=== PATIENT | female | born 1950 | race Caucasian/White ===

== ENCOUNTER 2017-05-27 09:06 | Inpatient (IN) ==
--- NOTE | 2017-05-26 21:59 | Discharge Summary ---
<ChaimariannaSalena englishKatina L - Last Filed: 05/27/17 11:42> Date of Encounter: 05/27/17 - Discharge Diagnosis (1) Arthritis of knee, right Priority: Primary Status: Chronic (2) Status post total knee replacement, right Priority: Primary Status: Chronic (3) Oxygen dependent Priority: Secondary Status: Acute Comments: Patient on 3 LPM - NC @ HS (4) Chronic anticoagulation Priority: Secondary Status: Acute Comments: Patient takes Xarelto for Chronic Atrial Fibrillation. Will resume this post-op for anticoagulation. (5) Diabetes type 2 with atherosclerosis of arteries of extremities Priority: Secondary Status: Chronic (6) Hypertension Priority: Secondary Status: Chronic Qualifiers: Hypertension type: unspecified Qualified Code(s): I10 - Essential (primary ) hypertension (7) A-fib Status: Chronic Qualifiers: Atrial fibrillation type: unspecified Qualified Code(s): I48.91 - Unspecified atrial fibrillation (8) COPD (chronic obstructive pulmonary disease) Status: Chronic Qualifiers: COPD type: unspecified COPD Qualified Code(s): J44.9 - Chronic obstructive pulmonary disease, unspecified (9) Morbid obesity with BMI of 40.0-44.9, adult Status: Chronic - Discharge Medications Home Medications: OxyCODONE Immed Rel [Roxicodone 5 MG] 5 mg PO Q6HR PRN #28 tablet 05/26/17 [Rx] Albuterol Sulfate [Proair Hfa] 2 puff IH Q8H PRN 05/27/17 [History] Atorvastatin [Lipitor] 40 mg PO HS 05/27/17 [History] Cholecalciferol (Vitamin D3) [Vitamin D3] 1,000 unit PO DAILY 05/27/17 [History] Escitalopram [Lexapro] 10 mg PO DAILY 05/27/17 [History] Flecainide 100 mg PO BID 05/27/17 [History] Furosemide [Lasix] 20 mg PO DAILY 05/27/17 [History] Isosorbide MONOnitrate (24 HR) [Imdur] 30 mg PO DAILY 05/27/17 [History] Lisinopril [Zestril] 10 mg PO DAILY 05/27/17 [History] Metoprolol [Lopressor] 100 mg PO BID 05/27/17 [History] Montelukast [Singulair] 10 mg PO DAILY 05/27/17 [History] Mv-Mn/FA/Vit K/Lycop/Lut/Coq10 [Daily Multivitamin Capsule] 1 tab PO DAILY 05/27 [History] RisperiDONE [Risperdal] 0.5 mg PO DAILY 05/27/17 [History] Rivaroxaban [Xarelto] 20 mg PO DAILY 05/27/17 [History] diazePAM [Valium] 2 mg PO HS PRN 05/27/17 [History] metFORMIN [Glucophage] 250 mg PO BID 05/27/17 [History] Allergies/Adverse Reactions: 3 Allergy/AdvReac Type Severity Reaction Status Date / Time Hydromorphone [From Dilaudid] Allergy Palpitation Verified 05/27/17 09:28 s Penicillins [PCN] Allergy See Verified 05/27/17 09:28 Comments Sulfa (Sulfonamide Allergy Hives Verified 05/27/17 09:28 Antibiotics) Primary care physician: Giles Manrique MD - Patient Status Disposition: Transfer Inpatient Rehab Fac Condition: Good - Discharge Instructions Follow Up With: Giles Manrique MD [Primary Care Provider] - - Hospital Course Hospital course: Ms. Adamson is a 66 year old female - Time Spent with Patient Total time spent providing and/or coordinating discharge services: <Juan M Roy - Last Filed: 05/29/17 08:43> Date of Encounter: 05/29/17 Time of Encounter: 08:42 - Discharge Diagnosis (1) Arthritis of knee, right Priority: Primary Status: Chronic (2) Status post total knee replacement, right Priority: Primary Status: Chronic (3) Hypertension Priority: Secondary Status: Chronic Qualifiers: Hypertension type: unspecified Qualified Code(s): I10 - Essential (primary ) hypertension (4) A-fib Priority: Secondary Status: Chronic Qualifiers: Atrial fibrillation type: unspecified Qualified Code(s): I48.91 - Unspecified atrial fibrillation (5) COPD (chronic obstructive pulmonary disease) Priority: Secondary Status: Chronic Qualifiers: COPD type: unspecified COPD Qualified Code(s): J44.9 - Chronic obstructive pulmonary disease, unspecified (6) Hepatitis B Priority: Secondary Status: Chronic Qualifiers: Viral hepatitis chronicity: unspecified Hepatic coma status: without hepatic coma Hepatitis delta agent presence: without delta-agent Qualified Code(s): B19.10 - Unspecified viral hepatitis B without hepatic coma (7) Diabetes type 2, controlled Status: Acute Qualifiers: Diabetes mellitus complication status: with unspecified complications Diabetes mellitus intermediate insulin use: unspecified termite inspector insulin use status Qualified Code(s): E11.8 - Type 2 diabetes mellitus with unspecified complications (8) Pseudoseizures Priority: Secondary Status: Chronic (9) Morbid obesity with BMI of 40.0-44.9, adult Priority: Secondary Status: Chronic (10) Acute blood loss anemia Priority: Primary Status: Acute Primary care physician: Giles Manrique MD - Patient Status Functional capacity at discharge: uses cane/walker Overall status at discharge: patient is progressing back to baseline - Hospital Course Hospital course: Ms. Adamson is a 66 year old female Status post right total knee replacement patient with acute blood loss anemia received 2 units of blood. She received 1 more unit stay discharge stable condition.The patient had an uneventful postoperative course. They received antibiotics and physical therapy and were discharged in stable condition. There will follow-up in the office in 2 weeks. - Time Spent with Patient Total time spent providing and/or coordinating discharge services:
[2017-05-27] MEDS ORDERED: *HR* FentaNYL (PF) 100 MCG/2 ML VIAL ONE (09:12)
[2017-05-27] MEDS ORDERED: Ondansetron 4 MG/2 ML VIAL ONE (09:12)
[2017-05-27] MEDS ORDERED: *HR* Succinylcholine 200 MG/10 ML VIAL IVP ONE (09:12)
[2017-05-27] MEDS ORDERED: *HR* Midazolam HCl 2 MG/2 ML VIAL ONE (09:13)
[2017-05-27] MEDS ORDERED: *HR* Propofol 200 MG/20 ML VIAL IVP ONE (09:13)
--- NOTE | 2017-05-27 09:27 | Anesthesia Evaluation PreOp ---
Date of Encounter: 05/27/17 Time of Encounter: 09:24 - Past History Planned Operation: Right TKA Cardiac History: HTN, Arrhythmia (Afib) Pulmonary History: COPD (3L O2 @ night) VEHICLE SALES PROFESSIONAL History: Syncope (Pseudoseizures - none for 3 years), Other (Panic attacks, Depression) Other Medical History: Hepatic (Hep B.), Diabetes Type II, GERD, Other (Obesity) Anesthesia History: No Prior Anesthetic Complications, Past Anesthesia (Appy, GB , Tubal, L. TKR, Gastric bypass,GABRIELLA) : No Alcohol Use: rarely Drug use: none Medications and Allergies Aspirin Enteric Coated [Aspirin EC] 325 mg PO DAILY #21 tablet. 05/26/17 [Rx] OxyCODONE Immed Rel [Roxicodone 5 MG] 5 mg PO Q6HR PRN #28 tablet 05/26/17 [Rx] Albuterol Sulfate [Proair Hfa] 2 puff IH Q8H PRN 05/27/17 [History] Cholecalciferol (Vitamin D3) [Vitamin D] 1,000 unit PO DAILY 05/27/17 [History] Escitalopram [Lexapro] 10 mg PO DAILY 05/27/17 [History] Flecainide [Flecainide] 100 mg PO BID 05/27/17 [History] Furosemide [Lasix] 20 mg PO DAILY 05/27/17 [History] Isosorbide MONOnitrate (24 HR) [Imdur] 30 mg PO DAILY 05/27/17 [History] Lisinopril [Zestril] 10 mg PO DAILY 05/27/17 [History] Metoprolol [Lopressor] 100 mg PO BID 05/27/17 [History] Montelukast [Singulair] 10 mg PO DAILY 05/27/17 [History] Mv-Mn/FA/Vit K/Lycop/Lut/Coq10 [Daily Multivitamin Capsule] 1 tab PO DAILY 05/27 [History] RisperiDONE [Risperdal] 0.5 mg PO DAILY 05/27/17 [History] Rivaroxaban [Xarelto] 20 mg PO DAILY 05/27/17 [History] diazePAM [Valium] 2 mg PO HS PRN 05/27/17 [History] metFORMIN [Glucophage] 250 mg PO BID 05/27/17 [History] 3 Allergy/AdvReac Type Severity Reaction Status Date / Time Hydromorphone [From Dilaudid] Allergy Palpitation Verified 05/27/17 09:28 s Penicillins [PCN] Allergy See Verified 05/27/17 09:28 Comments Sulfa (Sulfonamide Allergy Hives Verified 05/27/17 09:28 Antibiotics) - Meds/Allergy Pre-op Review Medications Reviewed: Yes Allergies Reviewed: Yes Beta Blockers on Current Med List: No Anesthesia Results - Labs Laboratory Tests 03/13/17 05/21/17 05/21/17 11:40 11:13 11:13 WBC 7.5 Hgb 10.9 L Hct 34.8 L Plt Count 267 INR 2.4 Sodium Potassium Chloride Carbon Dioxide BUN Creatinine Hemoglobin A1c 7.1 H 05/21/17 11:13 WBC Hgb Hct Plt Count INR Sodium 141 Potassium 4.1 Chloride 106 Carbon Dioxide 25 BUN 13 Creatinine 0.77 Hemoglobin A1c - Imaging EKG: report reviewed (SINUS BRADYCARDIA INFERIOR MYOCARDIAL INFARCTION) Anesthesia Exam Height: 5'10'' Weight: 290# NPO (# of Hours): > 8 hrs Pain Scale: 0 Pain Scale Used: Numeric (1 - 10) - HEENT Pupil (Motor): Pupils equal, EOMI Mallampati: II Teeth: Normal Oral Opening: Greater than 3 - VEH[employer] SALES [employer]ESSION[employer] LOC: Oriented [employer] Motor: Normal RUE, Normal LUE, Normal RLE, Normal LLE, Normal Face [employer] Sensory: Normal: RUE, LUE, RLE, LLE, Face - Cardiac Rhythm: Regular Murmur: None JVD: No Carotid Bruit: No - Pulmonary Breath Sounds: bilateral Clear Respiratory Effort: Symmetrical - Additional Findings Dilaudid cause heart to race and she becomes diaphoretic, Morphine - no problems Anesthesia Assess/Plan ASA Score: 4 Modified [place] Scale for Level of Consciousness: Cooperative, oriented, and tranquil Anesthetic Plan: General, Regional (Right Fem. Nerve Block) Monitoring Plan: Standard Monitors Recovery Plan: PACU
[2017-05-27] MEDS ORDERED: *HR* Labetalol 20 MG/4 ML SYRINGE IVP PRN ×2 (09:37→09:55)
[2017-05-27] MEDS ORDERED: *HR* Meperidine 25 MG/ML SYRINGE IVP PRN (09:37)
[2017-05-27] MEDS ORDERED: *HR* Morphine 2 MG/ML SYRINGE IVP PRN ×2 (09:37→14:14)
[2017-05-27] MEDS ORDERED: *HR* Promethazine 25 MG/ML VIAL IVP PRN (09:37)
[2017-05-27] MEDS ORDERED: Plasma-Lyte A (PH 7.4) 1,000 ML IVC SCH (09:45)
[2017-05-27] MEDS ORDERED: Albuterol 2.5 MG/3 ML NEBULIZER IH ONE (09:50)
[2017-05-27] MEDS ORDERED: CeFAZolin Syr 3,000MG/30 ML 3,000 MG/30 ML SYRINGE IVPB ONE (09:50)
--- NOTE | 2017-05-27 10:57 | History & Physical Report ---
Date of Encounter: 05/27/17 Time of Encounter: 10:57 24 Hour HP Update - Instructions Instructions: If the History and Physical is less than 30 days old and was completed prior to A.M. admission and or procedure and has NOT been updated on calendar day of procedure please complete this update prior to performing procedure. - Update Patient reports changes in Medical Condition: No Changes in examination, assessment, or condition: No Changes in Medication: No Preop tests/diagnostics Reviewed: Yes Surgery Remains Indicated: Yes Consent for Planned Operative Procedure(s) Verified: Yes - Pre-Operative Checklist Preoperative Checklist Indicated: No Prophylactic Antibiotic Ordered: Yes Is VTE Prophylaxis Indicated?: Yes
[2017-05-27] MEDS ORDERED: ROPIVACAINE HCL/PF 0.5% 30 ML VIAL ONE (11:38)
[2017-05-27] MEDS ORDERED: Bupivacaine/Clonidine Syringe 1 EACH SYRINGE ONE (11:39)
[2017-05-27] MEDS ORDERED: Ethanol\\Acetic Acid\\Na Ace\\Ben 1,000 ML IRRIG.SOLN IR ONE (11:45)
--- NOTE | 2017-05-27 12:00 | Anesthesia Procedures ---
Date of Encounter: 05/27/17 Time of Encounter: 11:58 Procedures: Anesthesia - Nerve Block Procedure Date: 05/27/17 Time: 11:58 Allergies/Adv Reactions: dilaudid, pcn, sufa Pre-op Diagnosis: OA Rt Knee Surgical Procedure: Rt tot knee Checklist: Correct Patient Identifier Correct side: Right Blood Thinner: No Monitor Applied: EKG, BP, Pulse Oximetry Supplemental Oxygen via Nasal Cannula (L/min): 3 Sedation: Versed (mg): 2 Sedation: Fentanyl (mcg): 100 Indication: Post Op Analgesia Pre-op Neuro Deficits: No Block Type: Femoral, Other (IPACK) Catheter placed: No Sterile Technique: Yes Ultrasound used: Yes Anatomy identified: Yes Visual spread of Local: Yes Neuro Stimulation: Yes Nerve Stimulator Range: 0.2 - 0.4 mA Blood on Needle Aspiration: No Smooth Injection of Local: Yes Pain with Injection of Local: No Prep: Chlorhexadine Needle: 22 x 50 mm Stimuplex, 21 x 100 mm Stimuplex Local: 0.25% Bupivicaine w/Clonidine 20 mcg/cc, Ropivacaine Volume (cc): 20+30 Number of Attempts: 1 Complications: None/effective block Vitals: Vital Signs/O2 Sat, Most Current Temp Pulse Resp BP Pulse Ox 98.2 F 67 18 174/91 100 05/27/17 09:29 05/27/17 11:57 05/27/17 11:57 05/27/17 11:57 05/27/17 11:57 Comments: aseptic, tolerated well, effective
[2017-05-27] MEDS ORDERED: EPHEDrine 50 MG/ML VIAL ONE (12:18)
[2017-05-27] MEDS ORDERED: Acetaminophen IV 1,000 MG/100 ML INFUS..BTL ONE (12:42)
[2017-05-27] MEDS ORDERED: Ketorolac 30 MG/ML VIAL ONE (12:53)
--- NOTE | 2017-05-27 13:11 | Orthopedic Operative Note ---
Date of procedure: 05/27/17 Pre-op diagnosis: Right knee arthritis Post-op diagnosis: same Procedure: Procedure: Right robotic-assisted Total knee replacement Estimated blood loss: 200 cc Hardware: Metal and polyethylene replacement. [place] Femur: 5 Tibia: 4 PS insert: 13 Patella: 36 Exam Under anesthesia:lost full extension and 11 degrees as calculated by the robot full flexion and no instability Procedural Note Grade 4 arthritic changes all 3 compartments Operative procedure: The patient was brought to the operating room and placed on the operating room table. After general anesthesia was administered the operative knee was examined. Findings were noted in the exam under anesthesia. The operative extremity was prepped and draped in sterile surgical fashion. The patient received IV antibiotics prior to skin incision. A standard midline incision was made centered over the patella. The incision was made through the skin and subcutaneous tissue. A medial parapatellar tendon approach was performed. Care was taken to preserve tissue along the medial aspect of the patella. And to protect the patella tendon. The deep MCL was released off the medial tibia. The infra patella fat pad was excised. The patella was everted and cut was made at the level of the insertion of the quadriceps and patella tendon. The patella was sized to a 36 the guide was seated and the lug holes are drilled. Knee was brought into flexion. Patient noted to have grade 4 arthritic changes all 3 compartments. Steinmann pins were placed in the tibia and the femur for the tibial and femoral arrays respectively. Checkpoints were also placed in the tibia and the femur for calculation purposes. The knee including the femur and the tibial registered. Osteophytes, ACL and PCL were excised at this point. Extension was to loss of 11 degrees and then varus and valgus stresses were assessed, 90 degrees of flexion varus and valgus stresses were assessed and components were adjusted on the computer for the robotic cut positions. Femoral cuts were made first with robotic assistance, these included the anterior cut posterior cuts chamfer cuts. Tibial cut was then performed with robotic assistance as well. Bone fragments were removed, as well as the medial and lateral meniscus. The [id number] guide was seated box cut was made lug holes are drilled. The size 4 tibial tray was seated and prepared with the fin cutter. Trial reduction with the 13 PS Adrienne revealed extension of 0 degree and full flexion. No varus valgus instability. Trial reduction revealed excellent patella tracking. All trial components were removed all bony surfaces were irrigated. the tibia cemented followed by the femur, the #13 TS Adrienne was seated andthe patella was cemented and held in place with patellar clamp. Patient had similar findings for motion and stability. The knee was closed by the PA. The knee was then irrigated out with 2 L of pulse irrigation. The extensor mechanism was closed with #2 FiberWire suture and #2 PDS suture. The subcutaneous tissue was then irrigated and closed deep with #1 PDS suture superficially with 0 PDS suture and skin was closed with zip tie The patient was then placed in a sterile dressing and a postoperative brace extubated and transferred to recovery room in stable condition.t Anesthesia: BEVELRY Surgeon: Juan M Roy Education Instructor: Salome Mccoy Condition: stable Disposition: PACU
--- NOTE | 2017-05-27 14:06 | Anesthesia Evaluation Post Op ---
Date of Encounter: 05/27/17 Time of Encounter: 14:03 - Vital Signs Vital Signs: vss - Lungs Lungs: Clear Ascult./Percussion - Airway Airway: Non-obstructed - Cardiovascular Baseline Rhythm - Mental Status Mental Status: Alert & Oriented, Answers Appropriately - Pain Pain Scale used: Don (Faces) (denies) - Nausea Vomiting Nausea Vomiting: Not Present - Hydration Hydration: Ice chips - Discharge PostOp Status: Transfer Patient to floor
[2017-05-27] MEDS ORDERED: Dextrose Gel 15 GM PO PRN ×2 (14:14)
[2017-05-27] MEDS ORDERED: *HR* Dextrose 50 % in Water (Syg) 50 ML SYRINGE IVP PRN (14:14)
[2017-05-27] MEDS ORDERED: D5% in Water 1,000 ML IVC PRN (14:14)
[2017-05-27] MEDS ORDERED: Sennosides 8.6 MG TABLET PO PRN (14:14)
[2017-05-27] MEDS ORDERED: Naloxone 0.4 MG/ML INJ IVP PRN (14:14)
[2017-05-27] MEDS ORDERED: Ondansetron 4 MG/2 ML VIAL IVP PRN (14:14)
[2017-05-27] MEDS ORDERED: diazePAM 2 MG TABLET PO PRN (14:14)
[2017-05-27] MEDS ORDERED: Ringers Solution, Lactated 1,000 ML IVC SCH (14:14)
[2017-05-27] MEDS ORDERED: MOM Conc 10 ML UD.LIQ PO PRN (14:14)
[2017-05-27] MEDS ORDERED: *HR* OxyCODONE Immed Rel 5 MG TABLET PO PRN (14:14)
[2017-05-27] MEDS ORDERED: Temazepam 15 MG CAPSULE PO PRN (14:14)
[2017-05-27 14:18] LABS: Hematocrit 31.9 % (35.3-44.9); Hemoglobin 9.9 g/dL (11.5-15.4)
[2017-05-27] MEDS: Insulin LISPRO 300 UNITS/3 ML VIAL SQ SCH ×3 (15:03→21:26)
--- NOTE | 2017-05-27 15:44 | Physician Discharge Referral ---
ExtendedCare Referral Info Transfer To: ECF Provider in Charge: Provider in Charge after Transfer: PCP Institutional Level of Care: Skilled - Diagnosis (1) Arthritis of knee, right Priority: Primary Status: Chronic (2) Status post total knee replacement, right Priority: Primary Status: Chronic (3) Oxygen dependent Priority: Secondary Status: Acute (4) Chronic anticoagulation Priority: Secondary Status: Acute (5) Diabetes type 2 with atherosclerosis of arteries of extremities Priority: Secondary Status: Chronic (6) Hypertension Priority: Secondary Status: Chronic (7) A-fib Priority: Secondary Status: Chronic (8) COPD (chronic obstructive pulmonary disease) Priority: Secondary Status: Chronic (9) Morbid obesity with BMI of 40.0-44.9, adult Priority: Secondary Status: Chronic Expected Duration of Placement: < 30 days Prognosis: Good Aware of Diagnosis: Patient Aware of Prognosis: Patient - Transfer Medications Home Medications: OxyCODONE Immed Rel [Roxicodone 5 MG] 5 mg PO Q6HR PRN #28 tablet 05/26/17 [Rx] Albuterol Sulfate [Proair Hfa] 2 puff IH Q8H PRN 05/27/17 [History] Atorvastatin [Lipitor] 40 mg PO HS 05/27/17 [History] Cholecalciferol (Vitamin D3) [Vitamin D3] 1,000 unit PO DAILY 05/27/17 [History] Escitalopram [Lexapro] 10 mg PO DAILY 05/27/17 [History] Flecainide 100 mg PO BID 05/27/17 [History] Furosemide [Lasix] 20 mg PO DAILY 05/27/17 [History] Isosorbide MONOnitrate (24 HR) [Imdur] 30 mg PO DAILY 05/27/17 [History] Lisinopril [Zestril] 10 mg PO DAILY 05/27/17 [History] Metoprolol [Lopressor] 100 mg PO BID 05/27/17 [History] Montelukast [Singulair] 10 mg PO DAILY 05/27/17 [History] Mv-Mn/FA/Vit K/Lycop/Lut/Coq10 [Daily Multivitamin Capsule] 1 tab PO DAILY 05/27 [History] RisperiDONE [Risperdal] 0.5 mg PO DAILY 05/27/17 [History] Rivaroxaban [Xarelto] 20 mg PO DAILY 05/27/17 [History] diazePAM [Valium] 2 mg PO HS PRN 05/27/17 [History] metFORMIN [Glucophage] 250 mg PO BID 05/27/17 [History] Allergies/Adverse Reactions: 3 Allergy/AdvReac Type Severity Reaction Status Date / Time Hydromorphone [From Dilaudid] Allergy Palpitation Verified 05/27/17 09:28 s Penicillins [PCN] Allergy See Verified 05/27/17 09:28 Comments Sulfa (Sulfonamide Allergy Hives Verified 05/27/17 09:28 Antibiotics) - Respiratory Orders Oxygen / L per min (3 LPM - NC at HS) Smoking Cessation: Smoking cessation has been advised. For more information, call the [employer] Tobacco Quit Line at 7-156-KPOX-NOW. - Ancillary Orders May use pressure relief devices daily prn, May go on SELVIN w/family/respon alliance party w /meds at nurse discretion PRN, May consult with Dentist, Warehouse Loader, Parking Meter Collector PRN - Mobility Orders Chair, Ambulate - Rehabiliation Orders Rehab Orders: ROM Exercises, Evaluation for Physical Therapy, Evaluation for Occupational Therapy - Treatments Skin tear care topically daily PRN per policy List/Other: Right TKR - Robotic Opsite dressing, leave intact until first post-operative visit. If dressing becomes >50% saturated, contact office, remove dressing and place appropriate dressing in its place. Do not allow for dressing to get wet. [place]/Zipline dressing in place, plan to remove at POD#14-16. PT: Total Joint Precautions x 6 weeks Apply ICE/cold therapy wrap 3-6x/day for 20 minutes at a time. Encourage ambulation throughout the day and incentive spirometer 10x/hour. Elevate affected extremity above heart as tolerated. Brace: Knee immobilizer at night until first post-operative appointment. Anti-coagulation: Continue Xarelto, Dx: Atrial Fibrillation - Diet Orders Regular CERTIFICATION: I certify that the transfer of the above named patient to an Extended Care Facility is necessary for the continuing treatment of the diagnosis listed. The above information is true and accurate reflection of patient's current condition. Confidential - Redisclosure prohibited without a patient's written consent.
--- NOTE | 2017-05-27 15:45 | Physician Discharge Referral ---
Home Health/Hosp Referral Info Transfer to: Home Health Provider in Charge Post Discharge: PCP - Diagnosis (1) Arthritis of knee, right Priority: Primary Status: Chronic (2) Status post total knee replacement, right Priority: Primary Status: Chronic (3) Oxygen dependent Status: Acute (4) Chronic anticoagulation Status: Acute (5) Diabetes type 2 with atherosclerosis of arteries of extremities Status: Chronic (6) Hypertension Status: Chronic (7) A-fib Status: Chronic (8) COPD (chronic obstructive pulmonary disease) Status: Chronic (9) Morbid obesity with BMI of 40.0-44.9, adult Status: Chronic - Respiratory Orders Oxygen / L per min (3 LPM or NC at HS) Smoking Cessation: Smoking cessation has been advised. For more information, call the [employer] Tobacco Quit Line at 0-979-NBVP-NOW. - Diet/Nutrition Diet/Nutrition Orders: Regular - Activity Activity Orders: Up ad estuardo, Ambulate, Walker - Services Needed Following services are medically necessary services: Nursing, Home Health Aide, Physical Therapy, Occupational Therapy Home Care Orders: Right TKR - Robotic Opsite dressing, leave intact until first post-operative visit. If dressing becomes >50% saturated, contact office, remove dressing and place appropriate dressing in its place. Do not allow for dressing to get wet. [place]/Zipline dressing in place, plan to remove at POD#14-16. PT: Total Joint Precautions x 6 weeks Apply ICE/cold therapy wrap 3-6x/day for 20 minutes at a time. Encourage ambulation throughout the day and incentive spirometer 10x/hour. Elevate affected extremity above heart as tolerated. Brace: Knee immobilizer at night until first post-operative appointment. Anti-coagulation: Continue Xarelto, Dx: Atrial Fibrillation - Transfer Medications Home Medications: OxyCODONE Immed Rel [Roxicodone 5 MG] 5 mg PO Q6HR PRN #28 tablet 05/26/17 [Rx] Albuterol Sulfate [Proair Hfa] 2 puff IH Q8H PRN 05/27/17 [History] Atorvastatin [Lipitor] 40 mg PO HS 05/27/17 [History] Cholecalciferol (Vitamin D3) [Vitamin D3] 1,000 unit PO DAILY 05/27/17 [History] Escitalopram [Lexapro] 10 mg PO DAILY 05/27/17 [History] Flecainide 100 mg PO BID 05/27/17 [History] Furosemide [Lasix] 20 mg PO DAILY 05/27/17 [History] Isosorbide MONOnitrate (24 HR) [Imdur] 30 mg PO DAILY 05/27/17 [History] Lisinopril [Zestril] 10 mg PO DAILY 05/27/17 [History] Metoprolol [Lopressor] 100 mg PO BID 05/27/17 [History] Montelukast [Singulair] 10 mg PO DAILY 05/27/17 [History] Mv-Mn/FA/Vit K/Lycop/Lut/Coq10 [Daily Multivitamin Capsule] 1 tab PO DAILY 05/27 [History] RisperiDONE [Risperdal] 0.5 mg PO DAILY 05/27/17 [History] Rivaroxaban [Xarelto] 20 mg PO DAILY 05/27/17 [History] diazePAM [Valium] 2 mg PO HS PRN 05/27/17 [History] metFORMIN [Glucophage] 250 mg PO BID 05/27/17 [History] Allergies/Adverse Reactions: 3 Allergy/AdvReac Type Severity Reaction Status Date / Time Hydromorphone [From Dilaudid] Allergy Palpitation Verified 05/27/17 09:28 s Penicillins [PCN] Allergy See Verified 05/27/17 09:28 Comments Sulfa (Sulfonamide Allergy Hives Verified 05/27/17 09:28 Antibiotics) Certification: Further, I certify that my clinical findings support that this patient is homebound (i.e. absences from home require considerable and taxing effort and are for medical reasons or [employer] services or infrequently or short duration when for other reasons) because: Homebound Reason: Post-surgery restriction and or conditions limit ability to leave home Attestation: My signature below is to certify that this patient is under my care and that I, or nurse practitioner, or a physician's assistant public defender working with me, has a face-to -face encounter with this patient.
[2017-05-27] MEDS: Clindamycin 900 MG/50 ML 900 MG/50 ML IV.SOLN IVPB SCH ×2 (16:17→23:21)
[2017-05-27] MEDS ORDERED: *HR* Enoxaparin 30 MG/0.3 ML SYRINGE SQ SCH (18:00)
[2017-05-27] MEDS: *HR* Metformin 500 MG TABLET PO SCH (21:25)
[2017-05-27] MEDS: Metoprolol 100 MG TABLET PO SCH (21:32)
[2017-05-28 04:21] LABS: Hematocrit 28.1 % (35.3-44.9); Hemoglobin 8.9 g/dL (11.5-15.4)
[2017-05-28 04:30] LABS: BUN/Creatinine Ratio 12 (6-26); Blood Urea Nitrogen 9 mg/dL (7-20); Calcium 8.7 mg/dL (8.6-10.8); Carbon Dioxide 23 mEq/L (19-29); Chloride 107 mEq/L (98-109); Glucose 221 mg/dL (70-99); Osmolality,Calculated 289 (280-300); Potassium 4.2 mEq/L (3.5-4.5); Sodium 137 mEq/L (136-145); eGFR For African Americans > 60 (> 60); eGFR For Non-African Americans > 60 (> 60)
[2017-05-28] MEDS ORDERED: Furosemide 20 MG/2 ML VIAL IVP ONE (06:38)
--- NOTE | 2017-05-28 06:51 | Orthopedics Progress Note ---
Date of Encounter: 05/28/17 Time of Encounter: 06:51 - Assessment and Plan (1) Arthritis of knee, right Current Visit: No Status: Chronic (2) Status post total knee replacement, right Current Visit: No Status: Chronic (3) Hypertension Current Visit: Yes Status: Chronic Qualifiers: Hypertension type: unspecified Qualified Code(s): I10 - Essential (primary ) hypertension (4) A-fib Current Visit: Yes Status: Chronic Qualifiers: Atrial fibrillation type: unspecified Qualified Code(s): I48.91 - Unspecified atrial fibrillation (5) COPD (chronic obstructive pulmonary disease) Current Visit: Yes Status: Chronic Qualifiers: COPD type: unspecified COPD Qualified Code(s): J44.9 - Chronic obstructive pulmonary disease, unspecified (6) Hepatitis B Current Visit: Yes Status: Chronic Qualifiers: Viral hepatitis chronicity: unspecified Hepatic coma status: without hepatic coma Hepatitis delta agent presence: without delta-agent Qualified Code(s): B19.10 - Unspecified viral hepatitis B without hepatic coma (7) Diabetes type 2, controlled Current Visit: Yes Status: Acute Qualifiers: Diabetes mellitus complication status: with unspecified complications Diabetes mellitus vermin exterminator insulin use: unspecified vermin exterminator insulin use status Qualified Code(s): E11.8 - Type 2 diabetes mellitus with unspecified complications (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 Afebrile vital signs stable. Operative extremity: Neurovascularly intact Dressing clean dry and intact Calves nontender Assessment and plan: Continue with postoperative care Hemoglobin 8.9 transfuse 2 units Objective Vital signs: Vital Signs Temp Pulse Resp BP Pulse Ox 05/28/17 03:39 97.6 F 57 16 157/78 98 05/28/17 00:50 97.7 F 66 16 132/74 94 05/27/17 21:23 97.6 F 67 18 122/68 97 05/27/17 16:25 97.6 F 57 16 144/72 97 05/27/17 15:30 98.2 F 63 16 144/73 99 05/27/17 14:59 97.6 F 67 15 147/73 96 05/27/17 14:30 98.4 F 63 14 168/82 98 05/27/17 14:12 97.8 F 60 16 143/85 98 05/27/17 14:02 65 17 140/79 99 05/27/17 13:52 64 16 143/74 99 05/27/17 13:42 97.1 F L 68 16 131/94 97 05/27/17 11:57 67 18 174/91 100 05/27/17 11:39 54 16 159/72 99 05/27/17 11:18 56 16 159/68 99 05/27/17 10:06 18 162/78 96 05/27/17 09:29 98.2 F 61 18 162/78 96 Intake and Output 05/27/17 05/27/17 05/28/17 15:59 23:59 07:59 Intake Total 0 / 0 340 / 340 50 / 50 Output Total 200 / 200 1000 / 1000 0 / 0 Balance -200 / -200 -660 / -660 50 / 50 Intake: IV Fluids 50 / 50 50 / 50 Cleocin Premix 900 MG/50 ML 900 50 / 50 50 / 50 mg In 50 ml @ 50 mls/hr IVPB Q8HR SHERI Rx#:[id number] Oral 0 / 0 290 / 290 Output: Urine 1000 / 1000 0 / 0 Estimated Blood Loss 200 / 200 Other: Meal Dinner Percent of Meal Consumed 100% # Voids 1 Weight 131.542 kg 130.1 kg Blood Glucose* 130 259 Patient Weight 05/28/17 23:59 Weight 130.1 kg - Labs CBC & BMP: 05/28/17 03:45 05/28/17 03:45 Labs: Abnormal lab results Hgb 8.9 g/dL (11.5-15.4) L 05/28/17 03:45 Hct 28.1 % (35.3-44.9) L 05/28/17 03:45 Glucose 221 mg/dL (70-99) H 05/28/17 03:45 POC Glucose 239 (58-89) H 05/27/17 17:28 - VTE Documentation of Mechanical Device: Venous foot pump, device Consult Discharge Plan - Plan Referrals: Giles Manrique MD [Primary Care Provider] -
[2017-05-28] MEDS ORDERED: 0.9 % Sodium Chloride 500 ML ONE (07:48)
[2017-05-28] MEDS: Furosemide 20 MG TABLET PO SCH (08:21)
[2017-05-28] MEDS: Multivit/Ca/Min/Fe/FA 1 TAB TABLET PO SCH (08:21)
[2017-05-28] MEDS: Isosorbide MONOnitrate (24 HR) 30 MG TAB.ER.24H PO SCH (08:21)
[2017-05-28] MEDS: Cholecalciferol (D-3) 1,000 UNIT TABLET PO SCH (08:21)
[2017-05-28] MEDS: Metoprolol 100 MG TABLET PO SCH ×2 (08:21→21:43)
[2017-05-28] MEDS: risperiDONE 0.25 MG TABLET PO SCH (08:22)
[2017-05-28] MEDS: *HR* Metformin 500 MG TABLET PO SCH ×2 (08:22→21:43)
[2017-05-28] MEDS: Insulin LISPRO 300 UNITS/3 ML VIAL SQ SCH ×4 (08:22→21:44)
[2017-05-28] MEDS: *HR* Rivaroxaban 10 MG TABLET PO SCH (08:22)
[2017-05-28] MEDS: *HR* OxyCODONE Immed Rel 5 MG TABLET PO PRN ×3 (12:45→21:43)
[2017-05-29 04:21] LABS: Hematocrit 28.3 % (35.3-44.9); Hemoglobin 8.8 g/dL (11.5-15.4)
[2017-05-29 04:33] LABS: BUN/Creatinine Ratio 14 (6-26); Blood Urea Nitrogen 10 mg/dL (7-20); Calcium 8.2 mg/dL (8.6-10.8); Carbon Dioxide 24 mEq/L (19-29); Chloride 103 mEq/L (98-109); Glucose 172 mg/dL (70-99); Osmolality,Calculated 281 (280-300); Potassium 3.7 mEq/L (3.5-4.5); Sodium 134 mEq/L (136-145); eGFR For African Americans > 60 (> 60); eGFR For Non-African Americans > 60 (> 60)
[2017-05-29] MEDS ORDERED: Furosemide 20 MG/2 ML VIAL IVP ONE ×2 (07:01→15:37)
[2017-05-29] MEDS: Cholecalciferol (D-3) 1,000 UNIT TABLET PO SCH (08:23)
[2017-05-29] MEDS: Metoprolol 100 MG TABLET PO SCH (08:24)
[2017-05-29] MEDS: Furosemide 20 MG TABLET PO SCH (08:24)
[2017-05-29] MEDS: *HR* Metformin 500 MG TABLET PO SCH (08:24)
[2017-05-29] MEDS: *HR* OxyCODONE Immed Rel 5 MG TABLET PO PRN ×2 (08:24→13:46)
[2017-05-29] MEDS: *HR* Rivaroxaban 10 MG TABLET PO SCH (08:25)
[2017-05-29] MEDS: Multivit/Ca/Min/Fe/FA 1 TAB TABLET PO SCH (08:25)
[2017-05-29] MEDS: risperiDONE 0.25 MG TABLET PO SCH (08:25)
[2017-05-29] MEDS: Insulin LISPRO 300 UNITS/3 ML VIAL SQ SCH ×3 (08:26→17:42)
[2017-05-29] MEDS ORDERED: 0.9 % Sodium Chloride 250 ML ONE (12:03)
[2017-05-29] MEDS: Isosorbide MONOnitrate (24 HR) 30 MG TAB.ER.24H PO SCH (13:44)
[2017-05-29 15:31] VITALS: BP 167/70
[2017-05-29 15:55] LABS: Hematocrit 31.4 % (35.3-44.9); Hemoglobin 10.3 g/dL (11.5-15.4)
== END 2017-05-29 18:45 | DRG 302 ==
LOC: SAMDAY 09:06 → 3NENU 14:22
PROVIDERS: ADMIT Orthopaedic Surgery; ATTEND Orthopaedic Surgery

== ENCOUNTER 2018-03-03 20:53 | Observation (INO) ==
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
[2018-03-03] MEDS ORDERED: Ondansetron 4 MG/2 ML VIAL IVP ONE (21:10)
[2018-03-03 21:23] LABS: Basophils # 0.1 K/mcL (0.0-0.2); Basophils % 0.6 %; Eosinophils # 0.3 K/mcL (0.0-0.6); Eosinophils % 3.6 %; Hematocrit 36.2 % (35.3-44.9); Hemoglobin 11.8 g/dL (11.5-15.4); Immature Granulocytes % 0.1 % (0-4); Lymphocytes # 2.2 K/mcL (0.6-4.6); Lymphocytes % 25.8 %; Mean Corpuscular HGB Conc 32.6 g/dL (31.6-35.5); Mean Platelet Volume 9.4 fL (9.4-12.4); Monocytes # 0.8 K/mcL (0.0-1.3); Monocytes % 9.8 %; Neutrophils # 5.1 K/mcL (1.6-8.9); Platelet Count 228 K/mcL (140-400); Red Blood Count 3.81 M/mcL (3.82-4.97); Red Cell Distribution Width 14.4 % (11.5-14.5); Segmented Neutrophils % 60.1 %
[2018-03-03 21:30] LABS: INR 1.1; Prothrombin Time 12.7 Seconds (9.4-12.1)
[2018-03-03 21:43] LABS: Troponin I < 0.03 ng/mL (< 0.04)
[2018-03-03 21:52] LABS: BUN/Creatinine Ratio 22 (6-26); Blood Urea Nitrogen 15 mg/dL (8-23); Calcium 9.2 mg/dL (8.6-10.3); Carbon Dioxide 22 mEq/L (23-29); Chloride 109 mEq/L (98-107); Glucose 88 mg/dL (70-105); Osmolality,Calculated 282 (280-300); Potassium 5.9 mEq/L (3.5-5.1); Sodium 136 mEq/L (136-145); eGFR For Non-African Americans > 60 (> 60)
[2018-03-03] MEDS ORDERED: 0.9 % Sodium Chloride 1,000 ML IVC ONE (22:17)
[2018-03-03 22:43] LABS: Bilirubin,Urine Negative (Negative); Blood,Urine Negative (Negative); Clarity,Urine Clear (Clear); Color,Urine Yellow (Yellow); Glucose,Urine (UA) Normal (Normal); Ketones,Urine Negative (Negative); Leukocyte Esterase,Urine Moderate (Negative); Nitrite,Urine Negative (Negative); PH,Urine 6.5 pH Units (5.0-8.0); Protein,Urine Negative (Neg-Trace); Specific Gravity,Urine 1.015 (1.010-1.025); Urobilinogen,Urine Normal (Normal)
[2018-03-03 22:47] LABS: Bacteria,Urine None Seen per hpf (None-Few); Hyaline Casts,Urine None Seen per lpf (None-Few); RBC,Urine 0-3 per hpf (0-3); Squamous Epithelial Cell,Urine None Seen per lpf (None-Few); WBC,Urine 15-30 per hpf (0-3)
[2018-03-04] MEDS ORDERED: Ondansetron ODT 4 MG TAB.RAPDIS SL PRN (00:41)
[2018-03-04] MEDS ORDERED: Acetaminophen 325 MG TABLET PO PRN (00:41)
[2018-03-04] MEDS ORDERED: Naloxone 0.4 MG/ML INJ IVP PRN (00:41)
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
[2018-03-04 02:19] LABS: Basophils % 0.5 %; Eosinophils # 0.2 K/mcL (0.0-0.6); Eosinophils % 3.1 %; Hematocrit 34.2 % (35.3-44.9); Immature Granulocytes % 0.3 % (0-4); Lymphocytes # 1.8 K/mcL (0.6-4.6); Mean Corpuscular HGB Conc 32.2 g/dL (31.6-35.5); Mean Corpuscular Hemoglobin 30.6 pg (28.0-33.3); Mean Corpuscular Volume 95.3 fL (83.0-100.0); Mean Platelet Volume 9.9 fL (9.4-12.4); Monocytes # 0.6 K/mcL (0.0-1.3); Monocytes % 8.3 %; Neutrophils # 4.8 K/mcL (1.6-8.9); Platelet Count 204 K/mcL (140-400); Red Blood Count 3.59 M/mcL (3.82-4.97); Red Cell Distribution Width 14.4 % (11.5-14.5); Segmented Neutrophils % 63.8 %
[2018-03-04] MEDS ORDERED: Dextrose Gel 15 GM/37.5 ML TUBE PO PRN ×2 (02:50)
[2018-03-04] MEDS ORDERED: *HR* Dextrose 50 % in Water (Syg) 50 ML SYRINGE IVP PRN (02:50)
[2018-03-04] MEDS ORDERED: D5% in Water 1,000 ML IVC PRN (02:50)
[2018-03-04 05:20] LABS: Alanine Aminotransferase 15 Units/L (7-52); Albumin 3.4 g/dL (3.5-5.7); Albumin/Globulin Ratio 1.1 (1.1-2.2); Alkaline Phosphatase 68 Units/L (34-104); BUN/Creatinine Ratio 20 (6-26); Bilirubin,Total 0.4 mg/dL (0.3-1.0); Blood Urea Nitrogen 14 mg/dL (8-23); Calcium 8.8 mg/dL (8.6-10.3); Carbon Dioxide 21 mEq/L (23-29); Chloride 113 mEq/L (98-107); Globulin 3.1 g/dL (2.4-3.5); Glucose 112 mg/dL (70-105); Osmolality,Calculated 285 (280-300); Potassium 4.5 mEq/L (3.5-5.1); Sodium 137 mEq/L (136-145); Total Protein 6.5 g/dL (6.4-8.9); eGFR For Non-African Americans > 60 (> 60)
[2018-03-04] MEDS: Insulin LISPRO 300 UNITS/3 ML VIAL SQ SCH ×3 (06:45→17:04)
[2018-03-04 07:39] LABS: Aspartate Amino Transferase 15 Units/L (13-39)
[2018-03-04] MEDS ORDERED: *HR* Metformin 500 MG TABLET PO SCH (08:00)
[2018-03-04] MEDS: Metoprolol 100 MG TABLET PO SCH ×2 (08:29→21:08)
[2018-03-04] MEDS: risperiDONE 0.25 MG TABLET PO SCH (08:29)
[2018-03-04] MEDS: diazePAM 2 MG TABLET PO SCH (08:29)
[2018-03-04] MEDS: Loratadine 10 MG TABLET PO SCH (08:30)
[2018-03-04] MEDS: Isosorbide MONOnitrate (24 HR) 30 MG TAB.ER.24H PO SCH (08:30)
[2018-03-04] MEDS: Cholecalciferol (D-3) 1,000 UNIT TABLET PO SCH (08:30)
[2018-03-04] MEDS ORDERED: *HR* Rivaroxaban 10 MG TABLET PO SCH (09:00)
[2018-03-04] MEDS ORDERED: Furosemide 20 MG TABLET PO SCH (09:00)
--- NOTE | 2018-03-04 15:40 | Event Note ---
<Segundo Limon - Last Filed: 03/04/18 17:51> Date of Encounter: 03/04/18 Time of Encounter: 10:15 S: Ms. Adamson is a 67 y/o female with histoy significant for afib (home xarelto), DM2, and pseudoseizure, who was admitted around 0100 this AM for syncopal workup. Patient found to be normotensive, euglycemic, endorses no med changes or elicit drugs. CT head negative for mass/bleed, ECG showing sinus rhythm in 50s. O: Gen- a&o x3, nad, answers questions pleasantly and appropriately CV- RRR, s1/s2, no s3/s4 Lung- CTAB w/o crackles, wheeze, or rales Abd- soft, nontender, nondistended Neuro- no slurred speech, facial droop, paresthesia or focal deficit Skin- no cyanosis, pallor, or edema A/P: 1. Syncope: -echo ordered and pending -orthostatics pending -patient has not been lightheaded after assisted ambulation -if echo negative for structural abnormality, valvular defect, significant regurg/stenosis, may consider EEG 2. DM2 -euglycemic on presentation -low dose ssi 3. Melena -Hgb of 11.8 -hemocult ordered by night team -xarelto held at this time 4. chronic afib -xarelto held; continuing flecanide/lopressor <Moises Vargas - Last Filed: 03/04/18 18:16> Date of Encounter: 03/04/18 Pt placed in observation earlier today for syncopal episode. Currently has no symptoms. Exam alert Comfortable Mucus membranes dry Heart not tachy No wheeze Agree with assessment and plan as above.
[2018-03-04] MEDS ORDERED: Insulin LISPRO 300 UNITS/3 ML VIAL SQ SCH (21:00)
[2018-03-05 05:50] LABS: Hematocrit 35.7 % (35.3-44.9); Hemoglobin 11.5 g/dL (11.5-15.4); Mean Corpuscular HGB Conc 32.2 g/dL (31.6-35.5); Mean Corpuscular Hemoglobin 30.8 pg (28.0-33.3); Mean Corpuscular Volume 95.7 fL (83.0-100.0); Platelet Count 210 K/mcL (140-400); Red Blood Count 3.73 M/mcL (3.82-4.97); Red Cell Distribution Width 14.6 % (11.5-14.5)
[2018-03-05 06:04] LABS: BUN/Creatinine Ratio 16 (6-26); Blood Urea Nitrogen 12 mg/dL (8-23); Carbon Dioxide 26 mEq/L (23-29); Chloride 108 mEq/L (98-107); Glucose 133 mg/dL (70-105); Osmolality,Calculated 288 (280-300); Potassium 4.4 mEq/L (3.5-5.1); Sodium 138 mEq/L (136-145); eGFR For Non-African Americans > 60 (> 60)
[2018-03-05] MEDS: Loratadine 10 MG TABLET PO SCH (08:01)
[2018-03-05] MEDS: Isosorbide MONOnitrate (24 HR) 30 MG TAB.ER.24H PO SCH (08:01)
[2018-03-05] MEDS: Cholecalciferol (D-3) 1,000 UNIT TABLET PO SCH (08:01)
[2018-03-05] MEDS: risperiDONE 0.25 MG TABLET PO SCH (08:01)
[2018-03-05] MEDS: Insulin LISPRO 300 UNITS/3 ML VIAL SQ SCH ×2 (08:02→12:16)
[2018-03-05] MEDS: diazePAM 2 MG TABLET PO SCH (08:02)
[2018-03-05] MEDS: Metoprolol 100 MG TABLET PO SCH (08:03)
--- NOTE | 2018-03-05 08:36 | Electrocardiograph Report ---
[address] [address] Test Date: 2018-03-03 Pat Name: Meeta Adamson Department: EXAM8 Room: 3B11 Gender: F Application Specialist: : [id number] Requested By: Andry Armstrong Order Number: [id number] Reading MD: Aissatou Lindsay Measurements Intervals [place] Rate: 58 P: -18 TN: 184 QRS: -8 QRSD: 104 T: 30 QT: 425 QTc: 418 Interpretive Statements Sinus rhythm Low voltage, precordial leads Incomplete right bundle branch block Electronically Signed On 03-05-2018 8:35:21 EDT by Aissatou Lindsay
--- NOTE | 2018-03-05 09:49 | Internal Med Progress Note ---
Hospitalist Progress Note - Encounter Date of Encounter: 03/05/18 - Exam Vitals: Temp Pulse Resp BP Pulse Ox 97.5 F L 49 17 153/81 99 03/05/18 06:34 03/05/18 06:34 03/05/18 06:34 03/05/18 06:34 03/05/18 06:34 - Time Spent with Patient Total time spent is greater than 50% in coordination of care (as documented) at patient's floor/unit and/or counseling patient: Internal Medicine: Result - Labs CBC & Chem 7: 03/05/18 04:25 03/05/18 04:25 Labs: Short CBC 03/05/18 Range/Units 04:25 WBC 5.9 (4.3-11.1) K/mcL Hgb 11.5 (11.5-15.4) g/dL Hct 35.7 (35.3-44.9) % Plt Count 210 (140-400) K/mcL BMP 03/05/18 04:25 Sodium 138 Potassium 4.4 Chloride 108 H Carbon Dioxide 26 BUN 12 Creatinine 0.76 Glucose 133 H Calcium 9.0 - ABG Interpretation ABG results: PT/INR, D-dimer PT 12.7 Seconds (9.4-12.1) H 03/03/18 21:12 - VTE Documentation of Mechanical Device: Intermittent pneumatic compression device Consult Discharge Plan - Plan Referrals: Giles Manrique MD [Primary Care Provider] - 03/12/18 10:15 am
[2018-03-05 11:33] VITALS: BP 145/79
--- NOTE | 2018-03-05 14:40 | Discharge Summary ---
<Dg Harvey - Last Filed: 03/05/18 19:33> - NOTES TO OUTPATIENT PROVIDER Notes to Outpatient Provider: - Stay hydrated before long periods of standing. - avoid alcohol. - She might need a colonoscopy as an outpatient because of her reported 5-6 dark black stools ever since she had her gastric bypass surgery on December 13. Date of Encounter: 03/05/18 Time of Encounter: 10:15 - Discharge Diagnosis (1) Syncope Priority: Primary Status: Acute Qualifiers: Syncope type: unspecified Qualified Code(s): R55 - Syncope and collapse Hospital course: Ms. Admason is a 67 year old female has medical history of atrial fibrillation, diabetes and anxiety who presented for syncope without exertional or stressful stimuli. She denied anything happen to her like this before. The episode was not positional in nature. Initial workup in the ER was negative for any ST-T changes in the EKG. She was not found to be hypoglycemic (glucose 88). CT of her head was unremarkable and chest x-ray was within normal limits. Patient had no symptoms of dysuria or polyuria. Echo cardiogram was normal with LVEF of 60% and wall motion abnormalities. She was placed in observation during her hospital stay for syncopal episode and was asymptomatic throughout her hospital stay. Patient was found to have 5-6 dark black stool episodes which is admitted but she said that this has occurred before since her gastric bypass surgery. she might potentially need a colonoscopy as an outpatient in the near future. Her Orthostatic workup did show that her BP was 153/81 sitting and 120/ 73 with HOB elevated suggesting that her syncopal episode was secondary to orthostatic hypotension. She needs to stay hydrated before long period of standing or if possible refrain from long periods of standing. - Time Spent with Patient Total time spent providing and/or coordinating discharge services: - Discharge Medications Home Medications: Albuterol Sulfate [Proair Hfa] 2 puff IH Q8H PRN 05/27/17 [History] Atorvastatin [Lipitor] 40 mg PO HS 05/27/17 [History] Cholecalciferol (Vitamin D3) [Vitamin D3] 1,000 unit PO DAILY 05/27/17 [History] Escitalopram [Lexapro] 10 mg PO DAILY 05/27/17 [History] Flecainide 100 mg PO BID 05/27/17 [History] Furosemide [Lasix] 20 mg PO DAILY 05/27/17 [History] Isosorbide MONOnitrate (24 HR) [Imdur] 30 mg PO DAILY 05/27/17 [History] Lisinopril [Zestril] 10 mg PO DAILY 05/27/17 [History] Metoprolol [Lopressor] 100 mg PO BID 05/27/17 [History] Montelukast [Singulair] 10 mg PO DAILY 05/27/17 [History] Mv-Mn/FA/Vit K/Lycop/Lut/Coq10 [Daily Multivitamin Capsule] 1 tab PO DAILY 05/27 [History] RisperiDONE [Risperdal] 0.5 mg PO DAILY 05/27/17 [History] Rivaroxaban [Xarelto] 20 mg PO DAILY 05/27/17 [History] diazePAM [Valium] 2 mg PO HS PRN 05/27/17 [History] metFORMIN [Glucophage] 250 mg PO BID 05/27/17 [History] Loratadine [Claritin] 10 mg PO DAILY #14 tablet 11/11/17 [Rx] Allergies/Adverse Reactions: 3 Allergy/AdvReac Type Severity Reaction Status Date / Time Sulfa (Sulfonamide Allergy Hives Verified 01/22/18 10:32 Antibiotics) Hydromorphone [From Dilaudid] AdvReac Palpitation Verified 01/22/18 10:32 s Penicillins [PCN] AdvReac See Verified 03/03/18 22:15 Comments Date of admission: 03/03/18 22:44 Primary care physician: Giles Manrique MD - Constitutional Vitals: Temp Pulse Resp BP Pulse Ox 97.7 F 51 17 145/79 100 03/05/18 11:20 03/05/18 11:20 03/05/18 11:20 03/05/18 11:20 03/05/18 11:20 General appearance: Present: A&O X 3, pleasant, no acute distress, answers questions appropriately Exam: as below - Respiratory Respiratory exam: Present: CTAB (no wheezing , rales or ronchi) - Cardiovascular Cardiovascular exam: Present: RRR, +S1, +S2 - GI/Abdominal GI/Abdominal exam: Present: soft (non-tender , non -distended ) - Neurological Exam Neurological exam: Present: CN II-XII intact, oriented X3, no focal deficits - Psychiatric Psychiatric exam: Present: normal affect, normal mood - Patient Status Disposition: Home, Self-Care Condition: Good Overall status at discharge: patient is progressing back to baseline - Discharge Instructions Instructions: Syncope (DC), Syncope (GEN) Follow Up With: Giles Manrique MD [Primary Care Provider] - 03/12/18 10:15 am - Diet and Activity Activity: resume usual activities as tolerated Diet: low fat, low cholesterol, low salt diet - VTE Documentation of Mechanical Device: Intermittent pneumatic compression device <Moises Vargas - Last Filed: 03/05/18 19:42> Date of Encounter: 03/05/18 - Discharge Diagnosis (1) Orthostatic syncope Priority: Primary Status: Resolved (2) Syncope Priority: Secondary Status: Resolved Qualifiers: Syncope type: unspecified Qualified Code(s): R55 - Syncope and collapse (3) Diabetes Priority: Secondary Status: Acute Qualifiers: Diabetes mellitus type: type 2 Diabetes mellitus lobsterman insulin use: without lobsterman use Diabetes mellitus complication status: with circulatory complication Diabetes mellitus complication detail: with other circulatory complications Qualified Code(s): E11.59 - Type 2 diabetes mellitus with other circulatory complications (4) Hypertension Priority: Secondary Status: Chronic Qualifiers: Hypertension type: essential hypertension Qualified Code(s): I10 - Essential (primary) hypertension (5) A-fib Priority: Secondary Status: Chronic Qualifiers: Atrial fibrillation type: chronic Qualified Code(s): I48.2 - Chronic atrial fibrillation (6) COPD (chronic obstructive pulmonary disease) Priority: Secondary Status: Chronic Qualifiers: COPD type: unspecified COPD Qualified Code(s): J44.9 - Chronic obstructive pulmonary disease, unspecified (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 Adamson is a 67 year old female - Time Spent with Patient Total time spent providing and/or coordinating discharge services: Date of admission: 03/03/18 22:44 Primary care physician: Giles Manrique MD - Constitutional Vitals: Temp Pulse Resp BP Pulse Ox 97.7 F 51 17 145/79 100 03/05/18 11:20 03/05/18 11:20 03/05/18 11:20 03/05/18 11:20 03/05/18 11:20 - Attending Attestation I examined this patient and my medical decision-making was reviewed with the Resident Physician on 03/05/18. I agree with the documented findings, disposition and treatment plan as described except to the extent set forth below. Ms Adamson has been in observation for syncopal episode. Her work up has been negative and orthostatic vitals were abnormal. She was given IV fluids. At this time she is afebrile. She has no further symptoms. She is ready for discharge home. Exam alert Comfortable Mucus membranes dry Heart not tachy No wheeze Plan D/C home today.
--- NOTE | 2018-03-05 15:03 | Physician Discharge Referral ---
Home Health/Hosp Referral Info Transfer to: Home Health - Diagnosis (1) Syncope Priority: Primary Status: Acute - Respiratory Orders Smoking Cessation: Smoking cessation has been advised. For more information, call the [place] Tobacco Quit Line at 8-789-AQHY-NOW. - Diet/Nutrition Diet/Nutrition Orders: Regular - Services Needed Following services are medically necessary services: Nursing, Home Health Aide - Transfer Medications Home Medications: Albuterol Sulfate [Proair Hfa] 2 puff IH Q8H PRN 05/27/17 [History] Atorvastatin [Lipitor] 40 mg PO HS 05/27/17 [History] Cholecalciferol (Vitamin D3) [Vitamin D3] 1,000 unit PO DAILY 05/27/17 [History] Escitalopram [Lexapro] 10 mg PO DAILY 05/27/17 [History] Flecainide 100 mg PO BID 05/27/17 [History] Furosemide [Lasix] 20 mg PO DAILY 05/27/17 [History] Isosorbide MONOnitrate (24 HR) [Imdur] 30 mg PO DAILY 05/27/17 [History] Lisinopril [Zestril] 10 mg PO DAILY 05/27/17 [History] Metoprolol [Lopressor] 100 mg PO BID 05/27/17 [History] Montelukast [Singulair] 10 mg PO DAILY 05/27/17 [History] Mv-Mn/FA/Vit K/Lycop/Lut/Coq10 [Daily Multivitamin Capsule] 1 tab PO DAILY 05/27 [History] RisperiDONE [Risperdal] 0.5 mg PO DAILY 05/27/17 [History] Rivaroxaban [Xarelto] 20 mg PO DAILY 05/27/17 [History] diazePAM [Valium] 2 mg PO HS PRN 05/27/17 [History] metFORMIN [Glucophage] 250 mg PO BID 05/27/17 [History] Loratadine [Claritin] 10 mg PO DAILY #14 tablet 11/11/17 [Rx] Allergies/Adverse Reactions: 3 Allergy/AdvReac Type Severity Reaction Status Date / Time Sulfa (Sulfonamide Allergy Hives Verified 01/22/18 10:32 Antibiotics) Hydromorphone [From Dilaudid] AdvReac Palpitation Verified 01/22/18 10:32 s Penicillins [PCN] AdvReac See Verified 03/03/18 22:15 Comments Certification: Further, I certify that my clinical findings support that this patient is homebound (i.e. absences from home require considerable and taxing effort and are for medical reasons or [facility] or infrequently or short duration when for other reasons) because: Homebound Reason: Patient requires assistance of a person or device to safely leave home Attestation: My signature below is to certify that this patient is under my care and that I, or nurse practitioner, or a physician's assistant executive housekeeper working with me, has a face-to -face encounter with this patient.
== END 2018-03-05 15:00 | disposition home or self-care (01) ==
LOC: 3BNU 20:53 → EMEROOARM 20:53 → SUATTDRO 22:44 → 3BNU 22:57
PROVIDERS: ADMIT Pediatrics; ATTEND Internal Medicine

== ENCOUNTER 2020-02-26 20:06 | Observation (INO) ==
[2020-02-26 20:47] LABS: Basophils % 0.4 %; Eosinophils # 0.2 K/mcL (0.0-0.6); Eosinophils % 2.7 %; Hematocrit 34.3 % (35.3-44.9); Hemoglobin 10.9 g/dL (11.5-15.4); Immature Granulocytes % 0.1 % (0-4); Lymphocytes # 1.5 K/mcL (0.6-4.6); Mean Corpuscular HGB Conc 31.8 g/dL (31.6-35.5); Mean Corpuscular Hemoglobin 30.9 pg (28.0-33.3); Mean Corpuscular Volume 97.2 fL (83.0-100.0); Mean Platelet Volume 9.3 fL (9.4-12.4); Monocytes # 0.8 K/mcL (0.0-1.3); Monocytes % 10.9 %; Neutrophils # 4.4 K/mcL (1.6-8.9); Platelet Count 195 K/mcL (140-400); Red Blood Count 3.53 M/mcL (3.82-4.97); Red Cell Distribution Width 14.1 % (11.5-14.5); Segmented Neutrophils % 63.9 %
[2020-02-26 20:48] LABS: INR 1.4; Prothrombin Time 15.8 Seconds (9.4-12.1)
[2020-02-26 20:51] LABS: Activated Partial Thrombo Time 41.7 Seconds (26.0-36.0)
[2020-02-26 21:03] LABS: BUN/Creatinine Ratio 12 (6-26); Blood Urea Nitrogen 11 mg/dL (8-23); Calcium 9.2 mg/dL (8.6-10.3); Carbon Dioxide 27 mEq/L (23-29); Chloride 104 mEq/L (98-107); Glucose 126 mg/dL (70-105); Magnesium 1.9 mg/dL (1.6-2.6); Osmolality,Calculated 285 (280-300); Sodium 137 mEq/L (136-145); Troponin I < 0.03 ng/mL (< 0.04); eGFR For African Americans > 60 (> 60); eGFR For Non-African Americans > 60 (> 60)
[2020-02-27] MEDS ORDERED: Naloxone 0.4 MG/ML INJ IVP PRN (00:12)
[2020-02-27] MEDS ORDERED: *HR* Dextrose 50 % in Water (Vial) 50 ML VIAL IVP PRN (06:43)
[2020-02-27] MEDS ORDERED: Dextrose Gel 15 GM/37.5 ML TUBE PO PRN ×2 (06:43)
[2020-02-27] MEDS ORDERED: D5% in Water 1,000 ML IVC PRN (06:43)
[2020-02-27] MEDS: Regadenoson 0.4 MG/5 ML SYRINGE IVP ONE ×2 (08:10→08:11)
[2020-02-27] MEDS ORDERED: *HR* Rivaroxaban 10 MG TABLET PO SCH (09:00)
[2020-02-27 09:43] LABS: Hematocrit 35.8 % (35.3-44.9); Hemoglobin 11.3 g/dL (11.5-15.4); Mean Corpuscular HGB Conc 31.6 g/dL (31.6-35.5); Platelet Count 197 K/mcL (140-400); Red Blood Count 3.77 M/mcL (3.82-4.97); Red Cell Distribution Width 14.2 % (11.5-14.5); White Blood Count 5.1 K/mcL (4.3-11.1)
[2020-02-27 09:54] LABS: BUN/Creatinine Ratio 11 (6-26); Blood Urea Nitrogen 8 mg/dL (8-23); Carbon Dioxide 28 mEq/L (23-29); Chloride 105 mEq/L (98-107); Glucose 166 mg/dL (70-105); Osmolality,Calculated 288 (280-300); Potassium 3.9 mEq/L (3.5-5.1); Sodium 138 mEq/L (136-145); Troponin I < 0.03 ng/mL (< 0.04); eGFR For African Americans > 60 (> 60); eGFR For Non-African Americans > 60 (> 60)
[2020-02-27] MEDS: Insulin LISPRO 300 UNITS/3 ML VIAL SQ SCH ×2 (12:48→17:24)
[2020-02-27 18:33] VITALS: BP 158/87
== END 2020-02-27 18:59 | disposition home or self-care (01) ==
LOC: 3BNU 20:06 → EMEROOARM 20:06 → 3BNU 02-27 00:14
PROVIDERS: ADMIT Internal Medicine; ATTEND Internal Medicine

== ENCOUNTER 2021-03-06 13:54 | Observation (INO) ==
[2021-03-06] MEDS ORDERED: Isovue-370 500 ML BOTTLE IVP ONE (14:34)
[2021-03-06 14:37] LABS: Hematocrit 36.7 % (35.3-44.9); Hemoglobin 11.4 g/dL (11.5-15.4); Mean Corpuscular HGB Conc 31.1 g/dL (31.6-35.5); Mean Corpuscular Hemoglobin 30.2 pg (28.0-33.3); Mean Corpuscular Volume 97.3 fL (83.0-100.0); Mean Platelet Volume 10.5 fL (9.4-12.4); Platelet Count 187 K/mcL (140-400); Red Blood Count 3.77 M/mcL (3.82-4.97); Red Cell Distribution Width 15.5 % (11.5-14.5); White Blood Count 6.6 K/mcL (4.3-11.1)
[2021-03-06 14:51] LABS: INR 1.7; Prothrombin Time 19.5 Seconds (9.4-12.1)
[2021-03-06 14:54] LABS: Activated Partial Thrombo Time 44.2 Seconds (26.0-36.0)
[2021-03-06 15:26] LABS: Ethanol < 10 mg/dL (Less than 10)
[2021-03-06 15:27] LABS: BUN/Creatinine Ratio 17 (6-26); Blood Urea Nitrogen 16 mg/dL (8-23); Calcium 8.7 mg/dL (8.6-10.3); Carbon Dioxide 26 mEq/L (23-29); Chloride 107 mEq/L (98-107); Glucose 132 mg/dL (70-105); Osmolality,Calculated 293 (280-300); Potassium 4.3 mEq/L (3.5-5.1); Sodium 140 mEq/L (136-145); Troponin I < 0.03 ng/mL (< 0.04); eGFR For African Americans > 60 (> 60); eGFR For Non-African Americans 60 (> 60)
[2021-03-06] MEDS ORDERED: Perflutren Lipid Microsphere 1.3 ML in 0.9 % Sodium Chloride 8.7 ML IVP PRN (16:13)
[2021-03-06] MEDS ORDERED: Naloxone 0.4 MG/ML INJ IVP PRN (16:22)
[2021-03-06] MEDS ORDERED: D5% in Water 1,000 ML IVC PRN (16:28)
[2021-03-06] MEDS ORDERED: Dextrose Gel 15 GM/37.5 ML TUBE PO PRN ×2 (16:28)
[2021-03-06] MEDS ORDERED: *HR* Dextrose 50 % in Water (Vial) 50 ML VIAL IVP PRN (16:28)
[2021-03-06 17:07] LABS: Bilirubin,Urine Negative (Negative); Blood,Urine Large (Negative); Clarity,Urine Clear (Clear); Color,Urine Light-Yellow (Yellow); Glucose,Urine (UA) Normal (Normal); Ketones,Urine Negative (Negative); Leukocyte Esterase,Urine Negative (Negative); Mucus,Urine Few per lpf (None-Few); Nitrite,Urine Negative (Negative); PH,Urine 7.5 pH Units (5.0-8.0); Protein,Urine Negative (Neg-Trace); RBC,Urine TNTC per hpf (0-3); Specific Gravity,Urine > 1.030 (1.010-1.025); Squamous Epithelial Cell,Urine Few per hpf (None-Few); Urobilinogen,Urine Normal (Normal); WBC,Urine 0-3 per hpf (0-3)
[2021-03-06 17:25] LABS: Amphetamine Screen,Urine Negative ng/mL (Cutoff=1000); Barbiturate Screen,Urine Negative ng/mL (Cutoff=200); Benzodiazepines Screen,Urine Negative ng/mL (Cutoff=200); Cannabinoid Screen,Urine Negative ng/mL (Cutoff = 50); Cocaine Screen,Urine Negative ng/mL (Cutoff= 300); Opiate Screen,Urine Negative ng/mL (Cutoff=300); Phencyclidine Screen,Urine Negative ng/mL (Cutoff=25)
[2021-03-06] MEDS: Insulin LISPRO 300 UNITS/3 ML VIAL SUBQ SCH (19:55)
[2021-03-06] MEDS: 0.9 % Sodium Chloride 1,000 ML IVC SCH (20:03)
[2021-03-06] MEDS ORDERED: risperiDONE 0.25 MG TABLET PO SCH (20:15)
[2021-03-06] MEDS ORDERED: traZODone 50 MG TABLET PO SCH (21:00)
[2021-03-06] MEDS ORDERED: Insulin DETEMIR 100 UNIT/ML X5UNITS SUBQ SCH (21:00)
[2021-03-07 06:00] LABS: Basophils % 0.5 %; Eosinophils # 0.2 K/mcL (0.0-0.6); Eosinophils % 2.6 %; Hemoglobin 11.1 g/dL (11.5-15.4); Immature Granulocytes % 0.2 % (0-4); Lymphocytes # 1.3 K/mcL (0.6-4.6); Lymphocytes % 21.9 %; Mean Corpuscular HGB Conc 31.7 g/dL (31.6-35.5); Mean Corpuscular Volume 97.8 fL (83.0-100.0); Mean Platelet Volume 10.1 fL (9.4-12.4); Monocytes # 0.6 K/mcL (0.0-1.3); Monocytes % 10.6 %; Neutrophils # 3.7 K/mcL (1.6-8.9); Platelet Count 161 K/mcL (140-400); Red Blood Count 3.58 M/mcL (3.82-4.97); Red Cell Distribution Width 15.5 % (11.5-14.5); Segmented Neutrophils % 64.2 %; White Blood Count 5.8 K/mcL (4.3-11.1)
[2021-03-07 06:10] LABS: INR 1.2
[2021-03-07 06:23] LABS: Alanine Aminotransferase 57 Units/L (7-52); Albumin 3.7 g/dL (3.5-5.7); Albumin/Globulin Ratio 1.4 (1.1-2.2); Alkaline Phosphatase 57 Units/L (34-104); Aspartate Amino Transferase 44 Units/L (13-39); BUN/Creatinine Ratio 16 (6-26); Bilirubin,Total 0.6 mg/dL (0.3-1.0); Blood Urea Nitrogen 16 mg/dL (8-23); Carbon Dioxide 27 mEq/L (23-29); Chloride 107 mEq/L (98-107); Chol/HDL Ratio 1.7 (0-4.9); Cholesterol 76 mg/dL (< 200); Globulin 2.7 g/dL (2.4-3.5); Glucose 118 mg/dL (70-105); HDL Cholesterol 46 mg/dL (40-59); LDL Cholesterol,Calculated 19 mg/dL (< 100); Osmolality,Calculated 288 (280-300); Potassium 4.7 mEq/L (3.5-5.1); Sodium 138 mEq/L (136-145); Total Protein 6.4 g/dL (6.4-8.9); Triglycerides 55 mg/dL (< 150); eGFR For African Americans > 60 (> 60); eGFR For Non-African Americans 56 (> 60)
[2021-03-07 06:32] LABS: Estimated Average Glucose 177 mg/dl; Hemoglobin A1C 7.8 %
[2021-03-07 06:44] LABS: Troponin I < 0.03 ng/mL (< 0.04)
[2021-03-07 07:55] VITALS: O2SAT 100
[2021-03-07] MEDS: Insulin LISPRO 300 UNITS/3 ML VIAL SUBQ SCH ×2 (08:08→11:21)
[2021-03-07] MEDS: 0.9 % Sodium Chloride 1,000 ML IVC SCH (08:25)
[2021-03-07] MEDS ORDERED: Aspirin Enteric Coated 81 MG Tablet PO SCH (09:00)
[2021-03-07] MEDS ORDERED: miSOPROStoL 100 MCG TABLET PO SCH (09:00)
[2021-03-07] MEDS ORDERED: lisinopriL 5 MG TABLET PO SCH (09:00)
[2021-03-07] MEDS ORDERED: *HR* Amiodarone 200 MG TABLET PO SCH (09:00)
[2021-03-07] MEDS ORDERED: Furosemide Oral Soln 40 MG/4 ML UDC PO SCH (09:00)
[2021-03-07 10:20] VITALS: BP 125/89; PULSE 95; TEMP 98.1
[2021-03-07] MEDS ORDERED: *HR* Rivaroxaban 10 MG TABLET PO SCH (17:00)
[2021-03-07] MEDS ORDERED: risperiDONE 0.25 MG TABLET PO SCH (21:00)
== END 2021-03-07 13:14 | disposition home health service (06) ==
LOC: SUATTDRO → EMEROOARM 13:54 → CDU 13:54 → SUATTDRO 16:33 → CDU 17:01
PROVIDERS: ADMIT Hospitalist; ATTEND Hospitalist